=== PATIENT | female | born 1980 | race Hispanic/Latino ===

== ENCOUNTER 2018-06-09 18:51 | Inpatient (IN) ==
[2018-06-09 19:28] LABS: BILIRUBIN URINE NEGATIVE (NEGATIVE); CLARITY CLEAR (CLEAR); COLOR YELLOW; GLUCOSE URINE NEGATIVE (NEGATIVE); KETONE URINE NEGATIVE (NEGATIVE); URINE SOURCE CLEAN CATCH
[2018-06-09 19:29] LABS: BLOOD URINE NEGATIVE (NEGATIVE); LEUKOCYTES URINE 1+ (NEGATIVE); NITRITE URINE NEGATIVE (NEGATIVE); PROTEIN URINE TRACE mg/dL (NEGATIVE); SP GRAVITY URINE 1.015; UROBILINOGEN URINE 1 mg/dL
[2018-06-09 19:34] LABS: URINE BACTERIA 1+ /HFP; URINE CAST NONE SEEN /LPF; URINE CRYSTAL NONE SEEN /HPF; URINE EPITHELIAL CELLS >10 /HPF (<10); URINE RBC <10 /HPF (<10); URINE WBC <10 /HPF (<10); URINE YEAST NONE SEEN /HPF
[2018-06-09 20:06] LABS: BASO# 0.04 X1000 (0.0-0.2); BASO% 0.5 % (0.0-0.8); EOS# 0.16 X1000 (0.0-0.7); EOS% 1.9 % (0.0-10.0); HEMATOCRIT 20.4 % (37.0-47.0); IMM GRAN# 0.02 X1000 (0.0-0.04); IMM GRAN% 0.2 % (0.0-0.5); LYMPH# 1.59 X1000 (1.2-3.4); LYMPH% 18.6 % (20.5-51.1); MCH 14.6 PG (27-31); MCHC 25.5 g/dL (33-37); MCV 57.5 FL (81-99); MONO# 0.59 X1000 (0.11-0.59); MONO% 6.9 % (1.7-9.3); MPV 9.3 FL (7.4-10.4); NEUT# 6.17 X1000 (1.4-6.5); NEUT% 71.9 % (42.2-75.2); PLT 271 X1000 (130-400); RBC 3.55 XMIL (4.2-5.4); RDW 22.8 % (11.5-14.5); WBC 8.57 X1000 (4.8-10.8)
[2018-06-09 20:07] LABS: HEMOGLOBIN 5.2 g/dL (12.0-16.0)
[2018-06-09 20:19] LABS: EOS 1 % (1-10); LYMPHS 19 % (21-51); MONO 4 % (1-9); SEGS 76 % (42-75)
[2018-06-09 20:21] LABS: ANISOCYTOSIS 1+; HYPOCHROM 3+; MICROCYTOSIS 3+; POIKILOCYTOSIS 2+
[2018-06-09 20:22] LABS: AGAP 13; ALBUMIN 4.3 g/dL (3.5-5.0); ALKALINE PHOSPHATASE 101 U/L (32-104); BUN 10 mg/dL (8-22); CHLORIDE 105 mmol/L (98-107); COSMO 282; CREATININE 0.5 mg/dL (0.5-0.9); ESTIMATED GFR > 60; GLUCOSE 98 mg/dL (70-104); GOT 14 U/L (10-30); GPT 12 U/L (10-36); LARGE PLATELETS 2+; LIPASE 44 U/L (13-60); OVALOCYTES 3+; SODIUM 142 mmol/L (136-145); TCO2 24 mmol/L (25-35); TOTAL PROTEIN 7.2 g/dL (6.3-8.3)
--- NOTE | 2018-06-09 20:38 | PROVIDER DOCUMENTATION ---
This chart was entered by Gabrilele James Scribe, acting as scribe for Chace High MD. HPI-Syncope/Dizziness - General Chief Complaint: Abdominal Pain Stated Complaint: DIZZY/VOMITING Time Seen by Provider: 06/09/18 19:52 Source: patient Allergies/Adverse Reactions: Patient Allergies Allergy/AdvReac Type Severity Reaction Status Date / Time No Known Allergies Allergy Verified 06/09/18 19:07 Home Medications: Home Medication List Medication Instructions Recorded Confirmed Last Taken Type NK [No Home Medications] 06/09/18 06/09/18 Unknown History - History of Present Illness-Syncope/Dizzy Nature of Presenting Problem: pt is a 37 yr old female presenting with 2 week hx of dizziness, weakness and nausea, pt denies vomiting or diarrhea, admits constipation, unsure when last BM was. pt admits dx as flu 1 week ago but symptoms remain. pt denies any other complaints Current Symptoms: reports: nausea, lightheaded, dizzy. denies: sweaty, breathing difficulty, vomiting, headache, headache, blurred vision Recently Seen Here or By Another Healthcare Provider: No - Dizziness Severity in ED: reports: moderate Dizziness Related Current/Associated Symptoms: reports: dizzy Any recent trauma/injury?: reports: none Modifying Factors: improves with: nothing Patient usually:: reports: walks without assistance Review of Systems - Adult - REVIEW OF SYSTEMS - ADULT Constitutional: reports: fatique. denies: fever Eyes: denies: blurred vision, double vision Ears, Nose, Mouth & Throat: reports: no symptoms reported Cardiovascular: denies: chest pain, palpitations, syncope Respiratory: denies: cough, shortness of breath Gastrointestinal: reports: nausea. denies: abdominal pain, diarrhea, vomiting Genitourinary: denies: dysuria, frequency, flank pain Musculoskeletal: denies: back pain, muscle aches, neck pain Integumentary: reports: no symptoms reported Neurological: reports: dizziness/vertigo. denies: headache/migraines, loss of balance, syncope Psychiatric: reports: no symptoms reported Endocrine: reports: no symptoms reported Hematologic/Lymphatic: reports: no symptoms reported Allergic/Immunologic: reports: no symptoms reported All Other Systems: Reviewed and Negative Past History - Adult - PAST MEDICAL HISTORY-ADULT Review of Records: reports: Old Records Reviewed, Nursing Assessment Review, Medications Reviewed, Social history reviewed & non-contributory. Major Childhood Illnesses: reports: denies history Cardiovascular: reports: denies history Respiratory: reports: denies history Gastrointestinal: reports: denies history Obstetrical/Gynecological: reports: denies history Genitourinary: reports: denies history Musculoskeletal: reports: denies history Neurological: reports: denies history Endocrine/Immune: reports: denies history Other Conditions: reports: denies history - PRIOR SURGERIES/PROCEDURES Surgical/Procedure History: reports: - IMMUNIZATION STATUS Childhood Immunizations: See Nurse Assessment Flu Vaccine: See Nurse Assessment - FAMILY HISTORY Family History: reviewed, not pertinent - SOCIAL HISTORY Smoking: non-smoker Substance Use: none/never Living Situation: family Physical Exam-General - PHYSICAL EXAM-ADULT Initial Vital Signs Reviewed: Yes - CONSTITUTIONAL General Appearance: appears well, alert, no apparent distress - EYES Eyes: pale conjunctivae - HEAD, EARS, NOSE, MOUTH & THROAT HENMT: moist mucous membranes, other (pale oral mucosa) - NECK Neck: non-tender, full range of motion, supple, normal inspection - RESPIRATORY Respiratory: chest non-tender, lungs clear, normal breath sounds - CARDIOVASCULAR Cardiovascular: normal peripheral pulses, regular rate, rhythm, no edema - GASTROINTESTINAL (ABDOMEN) Abdominal Exam: normal bowel sounds, non tender, soft - LYMPHATIC Lymphatic: no adenopathy - MUSCULOSKELETAL Back Exam: normal inspection, no CVA tenderness, no vertebral tenderness Extremity: normal range of motion, non-tender, normal gait, normal inspection - SKIN Integumentary: normal turgor, pallor - NEUROLOGIC Neurologic: grossly normal, no motor/sensory deficits - PSYCHIATRIC Psych/Mental Status: normal mood/affect Progress - PLAN OF CARE/RESULTS Progress/Plan/Lab Results: Vital Signs - 8 hr 06/09/18 19:02 Temperature 99.2 F Pulse Rate 104 H Respiratory Rate 18 Blood Pressure 112/74 O2 Sat by Pulse Oximetry 100 Laboratory Results - last 24 hr 06/09/18 06/09/18 06/09/18 19:09 19:09 19:40 WBC RBC Hgb Hct MCV MCH MCHC RDW Std Deviation Plt Count MPV Immature Gran % (Auto) Neut % (Auto) Lymph % (Auto) [place] % (Auto) Eos % (Auto) Baso % (Auto) Immature Gran # (Auto) Neut # (Auto) Lymph # (Auto) [place] # (Auto) Eos # (Auto) Baso # (Auto) Segmented Neutrophils Lymphocytes Monocytes Eosinophils Hypochromia Large Platelets Poikilocytosis Anisocytosis Microcytosis Macrocytosis Ovalocytes Sodium Potassium Chloride Carbon Dioxide Anion Gap BUN Creatinine Estimated GFR/1.73 m2 BUN/Creatinine Ratio Glucose Calculated Osmolality Calcium Total Bilirubin AST ALT Alkaline Phosphatase Total Protein Albumin Globulin Albumin/Globulin Ratio Amylase 54 Lipase Serum , Qual Urine Source CLEAN CATCH Urine Color YELLOW Urine Clarity CLEAR Urine pH 7.0 Ur Specific Jena 1.015 Urine Protein TRACE A Urine Ketones NEGATIVE Urine Blood NEGATIVE Urine Nitrite NEGATIVE Urine Bilirubin NEGATIVE Urine Urobilinogen 1 Urine Microscopic RBC <10 Urine WBC 1+ A Urine Microscopic WBC <10 Ur Epithelial Cells >10 A Urine Crystals NONE SEEN Urine Bacteria 1+ Urine Casts NONE SEEN Urine Yeast NONE SEEN Urine Glucose NEGATIVE Urine Test NEGATIVE 06/09/18 06/09/18 06/09/18 19:40 19:40 19:40 WBC 8.57 RBC 3.55 L Hgb 5.2 L* Hct 20.4 L MCV 57.5 L MCH 14.6 L MCHC 25.5 L RDW Std Deviation 22.8 H Plt Count 271 MPV 9.3 Immature Gran % (Auto) 0.2 Neut % (Auto) 71.9 Lymph % (Auto) 18.6 L [place] % (Auto) 6.9 Eos % (Auto) 1.9 Baso % (Auto) 0.5 Immature Gran # (Auto) 0.02 Neut # (Auto) 6.17 Lymph # (Auto) 1.59 [place] # (Auto) 0.59 Eos # (Auto) 0.16 Baso # (Auto) 0.04 Segmented Neutrophils 76 H Lymphocytes 19 L Monocytes 4 Eosinophils 1 Hypochromia 3+ Large Platelets 2+ Poikilocytosis 2+ Anisocytosis 1+ Microcytosis 3+ Macrocytosis 1+ Ovalocytes 3+ Sodium 142 Potassium 4.0 Chloride 105 Carbon Dioxide 24 L Anion Gap 13 BUN 10 Creatinine 0.5 Estimated GFR/1.73 m2 > 60 BUN/Creatinine Ratio 20 Glucose 98 Calculated Osmolality 282 Calcium 8.0 L Total Bilirubin 0.30 AST 14 ALT 12 Alkaline Phosphatase 101 Total Protein 7.2 Albumin 4.3 Globulin 3.0 Albumin/Globulin Ratio 1.0 Amylase Lipase 44 Serum , Qual NEGATIVE Urine Source Urine Color Urine Clarity Urine pH Ur Specific Jena Urine Protein Urine Ketones Urine Blood Urine Nitrite Urine Bilirubin Urine Urobilinogen Urine Microscopic RBC Urine WBC Urine Microscopic WBC Ur Epithelial Cells Urine Crystals Urine Bacteria Urine Casts Urine Yeast Urine Glucose Urine Test Orders Category Date Time Status Admit - [facility] Routine AdmDCTranf 06/09/18 20:32 Active Activity - Strict Bedrest ORDERED Care 06/09/18 20:32 Active Resuscitation Status Routine Care 06/09/18 20:32 Ordered Transfuse .Give-Transfuse Care 06/09/18 20:10 Active Vital Signs Order Q4H Care 06/09/18 20:32 Active Clear Liquid Diet Diet 06/09/18 20:35 Active AMYLASE [CHEM] Stat Lab 06/09/18 19:40 Completed CBC WITH DIFF [HEME] Stat Lab 06/09/18 19:40 Completed COMPREHENSIVE METABOLIC PANEL [CHEM] Stat Lab 06/09/18 19:40 Completed FERRITIN Stat Lab 06/09/18 19:40 Received HCG [ TEST-SERUM] [PREG] Stat Lab 06/09/18 19:40 Completed LIPASE [CHEM] Stat Lab 06/09/18 19:40 Completed OCCULT BLOOD SCREEN STOOL PL Stat Lab 06/09/18 20:12 Uncollected TEST-URINE [PREG] Stat Lab 06/09/18 19:09 Completed TIBC [UIBC W TOTAL IRON] [CHEM] Stat Lab 06/09/18 19:40 Received TYPE & SCREEN [BBK] Stat Lab 06/09/18 19:[address] W/POSS RFLX CULT [URINALYSIS] Stat Lab 06/09/18 19:09 Completed URINE CULTURE [RM] Routine Lab 06/09/18 19:34 Ordered Oxygen Device Stat Oth 06/09/18 20:12 Active Transfer/Admit Order [TRANSFER] Routine Transfer 06/09/18 20:36 Ordered Result Diagrams: 06/09/18 19:40 06/09/18 19:40 - CONSULTS/PCP/HOSPITALIST Notification #1 *Consult/PCP/Hospitalist*: Dr. Amaro Time Discussed: 20:30 Consult Disposition: Admit Departure - Departure Date of Disposition Decision: 06/09/18 Time of Disposition Decision: 20:37 DIAGNOSIS: Symptomatic anemia Disposition: ADMITTED INPATIENT 09 Certified Medical Emergency: Emergent Condition: Stable Referrals and Follow-Ups: None,PCP [Primary Care Provider] - - Critical Care Note This patient required my direct & personal management of CC.: No Attestation - Physician/ MARIA DOLORES Attestation Patient care was provided by Advanced Practice Provider:: No The physician spent face to face time with patient:: Yes Advanced Practice Provider documentation review:: Supervising physician onsite and consulted in the evaluation and care of this patient. The physician did have a face to face encounter with the patient. This chart was documented by the indicated scribe, (Gabrielle James, V[place]) and accurately reflects the services I performed and decisions made by me, Hammad High MD, as attested by the provider's signature.
[2018-06-09 20:48] LABS: IRON SATURATION 3 %; TIBC 460 ug/dL; TOTAL IRON 16 ug/dL (49-151); UNBOUND IRON 444 ug/dL (112-346)
[2018-06-10] MEDS ORDERED: NS 500 ML ONE (00:03)
[2018-06-10 07:54] LABS: BASO# 0.07 X1000 (0.0-0.2); BASO% 0.8 % (0.0-0.8); EOS# 0.21 X1000 (0.0-0.7); EOS% 2.5 % (0.0-10.0); HEMATOCRIT 26.5 % (37.0-47.0); HEMOGLOBIN 7.4 g/dL (12.0-16.0); IMM GRAN# 0.02 X1000 (0.0-0.04); IMM GRAN% 0.2 % (0.0-0.5); LYMPH# 1.83 X1000 (1.2-3.4); LYMPH% 21.7 % (20.5-51.1); MCH 17.8 PG (27-31); MCHC 27.9 g/dL (33-37); MCV 63.9 FL (81-99); MONO# 0.71 X1000 (0.11-0.59); MONO% 8.4 % (1.7-9.3); NEUT# 5.58 X1000 (1.4-6.5); NEUT% 66.4 % (42.2-75.2); PLT 237 X1000 (130-400); RBC 4.15 XMIL (4.2-5.4); RDW 28.2 % (11.5-14.5); WBC 8.42 X1000 (4.8-10.8)
[2018-06-10] MEDS ORDERED: SODIUM CHLORIDE 0.9% INJ SCH (11:00)
--- NOTE | 2018-06-10 11:47 | HISTORY AND PHYSICAL ---
PRIMARY CARE PHYSICIAN: None. CHIEF COMPLAINT: Dizziness, weakness, nausea, constipation for 2 weeks that has progressively worsened. HISTORY OF PRESENTING ILLNESS: This is a 37-year-old female who presents to [facility] ER with complaints of a 2-week history of dizziness, weakness, nausea, and constipation. She only speaks Albanian, so we used the american sign language interpreter line in order to obtain our information and also reviewed the ER medical record. She states that for 2 weeks, she has been having these symptoms. States she has also had some black, sticky, tarry like stools. Her workup in the emergency room showed an hemoglobin and hematocrit of 5.2 and 20.4. She states that she had a normal menstrual cycle approximately 2 weeks ago and did not have any excessive bleeding or excessive pad use at that time. Her iron was 16 with a TIBC of 460. Urinalysis showed negative nitrite, 1+ white blood cells, 1+ bacteria, but she denies any burning or hurting with urination. She has been admitted to the medical unit, has already received 2 units of packed red blood cells, and her hemoglobin and hematocrit this morning are up to 7.4 and 26.5. Her stool for occult blood is pending. Urine culture pending and so she is being admitted for further evaluation and treatment. PAST MEDICAL HISTORY: None. PAST SURGICAL HISTORY: section. FAMILY HISTORY: Reviewed and noncontributory. SOCIAL HISTORY: She currently lives with family. Denies any tobacco, alcohol or illicit drug use. ALLERGIES: She has no known drug allergies. HOME MEDICATIONS: She does not take any medications on a routine basis at this time. LABORATORY DATA: On arrival showed a white blood cell count of 8.57, hemoglobin 5.2, hematocrit 20.4, platelets 271,000. Status post her +2 units of packed red blood cells, her hemoglobin and hematocrit are up to 7.4 and 26.5. Sodium of 142, potassium 4, chloride 105, CO2 24, BUN of 10, creatinine 0.5, glucose 98. Iron of 16, TIBC 460, ferritin of 9. Amylase 54, lipase 44. Serum test was negative. Urinalysis showed 1+ white blood cells, 1+ bacteria, negative nitrite. REVIEW OF SYSTEMS: She denied any fever, chills, blurred vision. She was positive for dizziness, fatigue, generalized weakness. Denied any chest pain, coughing, shortness of breath. She denied any abdominal pain, but did state that she had some burning in the epigastric area that had been present for approximately a week. She was positive for nausea but no vomiting. Positive for constipation and also noted some black tarry stools. Denied any burning or hurting with urination. PHYSICAL EXAMINATION: On arrival, she had a temperature of 99.2 degrees, a pulse of 104, respirations 18, blood pressure 112/74, saturating 100% on room air. Currently, temperature is at 97.8 degrees. GENERAL: This is a 37-year-old female who is sitting on the side of the bed. Answers questions appropriately through our american sign language interpreter line. HEENT: Normocephalic, atraumatic. Normal ENT inspection. Oropharynx and nares are clear. EYES: Pupils are equal, round, reactive to light and accommodation. Extraocular movements are intact. NECK: Normal inspection, normal range of motion. LUNGS: Clear to auscultation bilaterally with equal lung expansion and chest wall movement. ABDOMEN: Soft. There is some tenderness to the epigastric area that was mild. Bowel sounds are present x4 quadrants. MUSCULOSKELETAL: She had 5/5 strength x4 extremities. NEUROLOGICAL: The cranial nerves 2-12 appear grossly intact. ASSESSMENT: 1. Symptomatic anemia. 2. Iron deficiency anemia. 3. Possible gastrointestinal bleed. Awaiting occult blood results from her stool. 4. Fatigue. PLAN: She was admitted to the medical unit, has received 2 units of packed red blood cells. We will place on a regular diet. We will check her stool for occult blood. Urine culture is showing no growth at this time. Will place her on Protonix 40 mg IV q. 24. Will give her Ferrlecit 125 mg IV x1. We are going to check a transvaginal non OB ultrasound. Recheck a CBC and BMP in the a.m. If stool for occult blood is positive, the patient will most likely have to be transferred to the [facility] for GI input, but again we will have to wait on those results and further orders after seen by attending. Dictated by JODIE Martinez for Mayito Dominguez MD cc: JODIE Martinez MD
[2018-06-10 11:55] LABS: OCCULT BLOOD 1 NEGATIVE (NEGATIVE)
[2018-06-10] MEDS: PROTONIX IV SCH (11:55)
[2018-06-10 11:57] LABS: RETIC% 0.76 % (0.8-2.1); RETIC-HE 14.3 PG (28.2-36.6)
[2018-06-10] MEDS ORDERED: FERRLECIT 125 MG in NS 100 ML IV ONE (12:00)
[2018-06-10] MEDS ORDERED: TYLENOL PO PRN (12:00)
[2018-06-10] MEDS ORDERED: ZOFRAN IV PRN (12:00)
--- NOTE | 2018-06-10 12:25 | PROGRESS NOTE ---
DATE: 06/10/2018 ADDENDUM: Seen with nurse practitioner, JODIE Martinez. The patient is a 37-year-old female. No major medical problems. Presents with weakness and dizziness. She is , very limited Amharic. She does report some dark stools. She takes Advil and medications of that genre very intermittently. Her data from the ER showed significant anemia which was microcytic and iron stores also low, consistent with anemia of chronic, likely iron deficiency anemia. Her ferritin was 9. Her iron saturation was 3%. Her unsaturated iron binding was 444, total iron of 16. She does not report any menorrhagia but she does report possible melena. In any case, exam is unremarkable. She was transfused 2 units. We will evaluate for GI bleed and possible [employer] bleed, and follow accordingly, and initiate iron supplementation therapy. cc: Mayito Dominguez MD
--- NOTE | 2018-06-10 14:17 | Diag Imaging Result Doc PS360 ---
EXAM: US TRANSVAGINAL NON-OB - 06/10/2018 HISTORY: Anemia TECHNIQUE: Transvaginal ultrasound pelvis COMPARISON: None. FINDINGS: There are artifacts, presumably from patient's body habitus, which mildly limit detail. The uterus measures approximately 10.4 x 6.1 x 5.4 cm in size. The uterus appears nongravid, with dual layer endometrial thickness of 1 cm. The bilateral ovaries demonstrate blood flow signal on Doppler images. There is an apparent 3.2 x 3.2 x 1.5 cm complicated right ovarian cyst. The left ovary is unremarkable. There is no other adnexal mass identified. There is no free fluid identified. IMPRESSION: 3.2 x 3.2 x 1.5 cm right adnexal lesion suggestive of complicated cyst. Electronically signed by Anoop Barajas 06/10/2018 2:15 PM
[2018-06-11 06:24] LABS: BASO# 0.06 X1000 (0.0-0.2); BASO% 0.6 % (0.0-0.8); EOS# 0.31 X1000 (0.0-0.7); EOS% 3.2 % (0.0-10.0); HEMATOCRIT 27.8 % (37.0-47.0); HEMOGLOBIN 7.8 g/dL (12.0-16.0); IMM GRAN# 0.03 X1000 (0.0-0.04); IMM GRAN% 0.3 % (0.0-0.5); LYMPH# 1.99 X1000 (1.2-3.4); LYMPH% 20.8 % (20.5-51.1); MCH 17.8 PG (27-31); MCHC 28.1 g/dL (33-37); MCV 63.5 FL (81-99); MONO# 0.78 X1000 (0.11-0.59); MONO% 8.2 % (1.7-9.3); NEUT# 6.39 X1000 (1.4-6.5); NEUT% 66.9 % (42.2-75.2); PLT 257 X1000 (130-400); RBC 4.38 XMIL (4.2-5.4); RDW 28.2 % (11.5-14.5); WBC 9.56 X1000 (4.8-10.8)
[2018-06-11 06:50] LABS: AGAP 12; BUN 10 mg/dL (8-22); CALCIUM 8.2 mg/dL (8.8-10.2); CHLORIDE 105 mmol/L (98-107); COSMO 280; CREATININE 0.5 mg/dL (0.5-0.9); ESTIMATED GFR > 60; GLUCOSE 89 mg/dL (70-104); SODIUM 141 mmol/L (136-145); TCO2 24 mmol/L (25-35)
[2018-06-11 07:30] LABS: EOS 3 % (1-10); LYMPHS 19 % (21-51); MONO 2 % (1-9); SEGS 75 % (42-75)
[2018-06-11 07:31] LABS: ANISOCYTOSIS 3+; POLYCHROM OCCASIONAL
[2018-06-11 07:32] LABS: HYPOCHROM 2+; LARGE PLATELETS OCCASIONAL; MICROCYTOSIS 1+; POIKILOCYTOSIS 2+; TARGET CELLS OCCASIONAL
[2018-06-11 07:33] LABS: OVALOCYTES 1+; STOMATOCYTES OCCASIONAL
[2018-06-11] MEDS ORDERED: ICAR-C PO SCH (09:00)
[2018-06-11] MEDS ORDERED: FERRLECIT 125 MG in NS 100 ML IV ONE (10:00)
[2018-06-11] MEDS: PROTONIX IV SCH (10:00)
[2018-06-11 12:22] VITALS: BP 127/64
--- NOTE | 2018-06-11 21:39 | DISCHARGE SUMMARY ---
ADMISSION DATE: 06/09/2018 DISCHARGE DATE: 06/11/2018 PRIMARY CARE PHYSICIAN: None. ADMISSION DIAGNOSES: 1. Symptomatic anemia. 2. Iron deficiency anemia. 3. A possible gastrointestinal bleed. Awaiting occult blood from her stool. 4. Fatigue. DISCHARGE DIAGNOSIS: 1. Iron deficiency anemia. 2. Fatigue, improved. SUMMARY: This is a 37-year-old female who presented to the emergency room with a 2-week history of dizziness, weakness, nausea and constipation. We used the senior nurse manager line as she does not speak Albanian. States that for 2 weeks she had been having the symptoms. Also noted some black sticky tarry like stools but her stool for occult blood was negative. She was noted when she arrived to have an hemoglobin and hematocrit of 5.2 and 20.4. She received 2 units of packed red blood cells. Her iron was noted to be 16 with a TIBC of 460. She received 2 units of packed red blood cells and her hemoglobin and hematocrit came up to 7.4 and 26.5. We did do a transvaginal non OB pelvic ultrasound that showed an impression of a 3.2 x 3.2 x 1.5 cm in the right adnexal lesion suggestive of complicated cyst. She received 2 doses of Ferrlecit 125 mg IV x1 each dose, was also placed on Icar C, Protonix and her hemoglobin and hematocrit today remained stable at 7.8 and 27.8. She did admit to using NSAIDs frequently so this certainly could be another cause of why her blood dropped but it is felt now that she can safely be discharged home to have an outpatient EGD and GI consultation. We gave her a prescription for her discharge medications with Icar C 1 p.o. daily #30 with 1 refill. Followup again will be with GI in 1 to 2 weeks and contact the office to schedule her appointment. All discharge instructions were reviewed and she verbalized understanding through our senior nurse manager line. TIME SPENT: 33 minutes. Dictated by JODIE Martinez for Mayito Dominguez MD cc: JODIE Martinez MD
--- NOTE | 2018-06-11 23:21 | DISCHARGE SUMMARY ---
ADMISSION DATE: 06/09/2018 DISCHARGE DATE: 06/11/2018 The patient looks well. No major complaints. Her hemoglobin and hematocrit is up to 7.8 and 27. Overall she we feel stable for her to go. She is heme negative. No gross bleeding. Go home on Icar C and follow up with GI for outpatient workup of her iron deficiency. This is a service admission but I would refer her to [facility] and Dr. Hopkins. cc: Mayito Dominguez MD
== END 2018-06-11 17:42 | disposition home or self-care (01) | DRG 812 ==
LOC: P.ED 18:51 → P.MEDSURG 18:51 → OBSVTOIN 21:13 → SUATTDRO 21:13 → P.MEDSURG 21:36
PROVIDERS: ATTEND Internal Medicine
CPT/HCPCS: 36415; 36430; 76830; 80048; 80053; 81001; 81025; 82150; 82270; 82607; 82728; 82746; 83540; 83550; 83690; 84703; 85025; 85045; 86850; 86900; 86901; 86920; 87088; 94761; 99285; A9270; C9113; J2916; J7040; P9016; S0164